=== PATIENT | female | born 2000 | race African-American/Black ===

== ENCOUNTER 2021-03-09 04:39 | Emergency (ER) | payer OTHER ==
[~2021-03-09] VITALS: Ht 177.8 cm; Wt 149.7 kg
[2021-03-09 04:58] VITALS: BP 153/108
[2021-03-09] MEDS ORDERED: ACETAMINOPHEN PO (05:04)
[2021-03-09] MEDS ORDERED: I-PRIN200 MG PO (05:05)
== END 2021-03-09 05:45 | disposition home or self-care (01) ==
LOC: ER 04:39
DX: U07.1 COVID-19 (principal); R10.13 Epigastric pain